=== PATIENT | female | born 1990 | race Caucasian/White ===

== ENCOUNTER → 2020-10-23 | Day surgery (SDC) | payer OTHER | END | disposition home or self-care (01) | LOC: JRADUS-SUR 09:34 | PROVIDERS: ATTEND Obstetrics & Gynecology | DX: Z53.8 Procedure and treatment not carried out for other reasons (principal) | CPT/HCPCS: 84703 ==

== ENCOUNTER → 2020-11-19 | Day surgery (SDC) | payer OTHER | END | disposition home or self-care (01) | LOC: JRADIR 10:47 → JRADUS-SUR 10:47 | PROVIDERS: ATTEND Obstetrics & Gynecology | PROC: BU18YZZ Fluoroscopy of Uterus and Fallopian Tubes using Other Contrast (ICD-10-PCS; principal; 2020-11-19) | DX: N97.9 Female infertility, unspecified (principal) | CPT/HCPCS: 58340; 74740-TC-FY; 76000-TC-FY; 84703 ==

== ENCOUNTER 2021-07-23 06:38 | Day surgery (SDC) | payer OTHER ==
[2021-07-22 18:12] VITALS: BMI 25.4
[2021-07-23] MEDS ORDERED: PROPOFOL 20 ML ONE ×2 (10:47)
[2021-07-23] MEDS ORDERED: GLYCOPYRROLATE 0.2 MG/1 ML VIAL ONE (10:47)
[2021-07-23] MEDS ORDERED: KETOROLAC TROMETHAMINE 30 MG/1 ML VIAL ONE (10:47)
[2021-07-23] MEDS ORDERED: LIDOCAINE HCL/PF 2% SDV 5ML VIAL ONE (10:47)
[2021-07-23] MEDS ORDERED: DEXAMETHASONE SOD PHOSPHATE 4 MG/1 ML VIAL ONE (10:47)
[2021-07-23] MEDS ORDERED: ROCURONIUM BROMIDE 50 MG/5 ML SYRINGE ONE (10:48)
[2021-07-23] MEDS ORDERED: MIDAZOLAM HCL 2 MG/2 ML SINGLE DOSE VIAL ONE (10:48)
[2021-07-23] MEDS ORDERED: NEOSTIGMINE METHYLSULFATE 0.5 MG/ML - 10 ML MDV ONE (10:48)
[2021-07-23] MEDS ORDERED: METHYLENE BLUE 1% 10 MG/1 ML VIAL NR ONE (11:00)
[2021-07-23] MEDS ORDERED: ceFAZolin SODIUM 1 GM VIAL IVPB ONE (11:30)
[2021-07-23] MEDS ORDERED: ceFAZolin SODIUM 1 GM VIAL ONE (11:37)
[2021-07-23] MEDS ORDERED: IBUPROFEN 800 MG/8 ML IJ IVPB PRN (12:22)
[2021-07-23] MEDS ORDERED: IBUPROFEN 400 MG TABLET (FP) PO PRN (12:22)
[2021-07-23] MEDS ORDERED: ACETAMINOPHEN 1000 MG/100 ML VIAL IVPB ONE (12:24)
[2021-07-23] MEDS ORDERED: LACTATED RINGERS SOLUTION 1,000 ML IV SCH ×2 (12:30→13:00)
[2021-07-23] MEDS ORDERED: ACETAMINOPHEN INJECTION 0 ML IVPB ONE (12:43)
[2021-07-23] MEDS ORDERED: ACETAMINOPHEN INJECTION 100 ML IVPB ONE (12:44)
[2021-07-23] MEDS ORDERED: oxyCODONE HCL 5 MG TABLET PO ONE (12:51)
[2021-07-23] MEDS ORDERED: ONDANSETRON 4 MG/2 ML VIAL IVPUSH PRN (12:51)
[2021-07-23 16:19] VITALS: BP 110/73; PULSE 94; TEMP 96.6
== END 2021-07-23 16:00 | disposition home or self-care (01) | DRG 513 ==
LOC: J2C 06:38 → UNDOADMIN 06:38 → JASUSAT 06:38 → EDSTATUS 10:00 → UNDODISIN 16:00 → JASUSAT 16:00
PROVIDERS: ATTEND Specialist
PROC: 3E1P88X Irrigation of Female Reproductive using Irrigating Substance, Via Natural or Artificial Opening Endoscopic, Diagnostic (ICD-10-PCS; 2021-07-23)
PROC: 0UJ84ZZ Inspection of Fallopian Tube, Percutaneous Endoscopic Approach (ICD-10-PCS; 2021-07-23)
PROC: 0DNW4ZZ Release Peritoneum, Percutaneous Endoscopic Approach (ICD-10-PCS; principal; 2021-07-23 10:00)
PROC: 0UT54ZZ Resection of Right Fallopian Tube, Percutaneous Endoscopic Approach (ICD-10-PCS; 2021-07-23 10:00)
DX: N94.6 Dysmenorrhea, unspecified (principal); N70.11 Chronic salpingitis; N73.6 Female pelvic peritoneal adhesions (postinfective); N97.9 Female infertility, unspecified
CPT/HCPCS: 81025; 88302-TC; 88304-TC; 94760; J0131